=== PATIENT | male | born 1975 | race Caucasian/White ===

== ENCOUNTER 2024-01-10 06:06 | Emergency (ER) | payer MEDICAID, SELFPAY ==
[2024-01-10 06:08] VITALS: BP 133/96; PULSE 79; RESP 18; TEMP 36.1; O2SAT 99
--- NOTE | 2024-01-10 06:15 | CT_ITS ---
EXAM: CT ABDOMEN AND PELVIS WITHOUT INTRAVENOUS CONTRAST CLINICAL INDICATION: Pain TECHNIQUE: Helically acquired images were obtained of the abdomen and pelvis without intravenous contrast. This CT exam was performed using one or more of the following dose reduction techniques: automated exposure control, adjustment of the mA and/or kV according to patient size, and/or use of iterative reconstruction technique. RADIATION DOSE: CTDIvol = 6.05 mGy, DLP = 285.59 mGy-cm COMPARISON: No relevant prior studies available. FINDINGS: LOWER THORAX THERE are at least 4 small irregular nodular opacities in the right lung base, the largest roughly 6 mm, not typical infiltrates or effusions. The heart is not fully included. No cardiomegaly. No significant pericardial effusion. ABDOMEN: LIVER: Unremarkable. Homogeneous. GALLBLADDER AND BILE DUCTS: Unremarkable. No calcified gallstones. No gallbladder distention or wall edema. No intra- or extrahepatic biliary ductal dilation. PANCREAS: Unremarkable. No focal cystic mass. SPLEEN: Unremarkable. Normal size without focal cystic or solid mass. ADRENALS: Unremarkable. No nodules. KIDNEYS AND URETERS: There is slightly complex cystic lesion at the anterior lower pole of the right kidney, 3.3 cm craniocaudal, with faint peripheral calcification at its deep margin, slight wall thickening of roughly 4 mm at its right deep margin. Suspicion of tiny nonobstructing stone dependent right kidney. At least one small nonobstructing stone left kidney. Slightly prominent right ureter to the level of a 3.3 mm x 2.3 mm stone in the distal right ureter immediately adjacent to the right UVJ. Mid right ureter is roughly 8 mm, right renal pelvis 1.4 cm AP diameter. STOMACH AND BOWEL: Moderate stool in much of the proximal half of the colon. No stomach or bowel distention. No focal inflammatory change. PELVIS: APPENDIX: Normal appendix in the right pelvic sidewall. The cecum is low-lying. BLADDER: Unremarkable. REPRODUCTIVE: Unremarkable as visualized. No mass. ABDOMEN and PELVIS: INTRAPERITONEAL SPACE: Unremarkable. No ascites or other fluid collection. No free air. BONES/JOINTS: Grade 1-2 anterolisthesis of L5 with respect to S1 with marked L5-S1 disc space narrowing and bilateral L5 pars defects. Roughly 1.1 cm anterolisthesis of L5 with to S1. Marked disc space narrowing and moderate spondylosis with vacuum disc at L5 4-5, endplate sclerosis at both levels. No evidence of significant spinal canal stenosis. Degenerative changes of both hip joints, mildly greater on the right with slight gas in the joint mild narrowing of the superior and medial joint compartments. No suspicious lytic or blastic abnormality. SOFT TISSUES: Unremarkable. No discrete abdominal or pelvic wall hernia. VASCULATURE: Minimal aortoiliac atherosclerotic calcification. Abdominal aorta is non-dilated. LYMPH NODES: Unremarkable. No enlarged lymph nodes. CT/Abdomen/Pelvis without Cont IMPRESSION: 1. Bilateral nephrolithiasis. Mild right hydroureteronephrosis to the level of a 3 mm x 2 mm stone in the distal right ureter. 2. At least mildly complex exophytic right renal cystic lesion with slightly thick wall and slight curvilinear wall calcification. Prior exam would be useful for comparison. Cannot exclude neoplasm. RECOMMENDATIONS: ACR White Paper guidelines (Hermervin, et al. JACR 2018; 15(2):264-273) recommend MRI or CT without and with intravenous contrast. 3. Cluster of small nodules in the right lung base, likely additional and benign. The largest is 6 mm. [address] full chest [address] for additional evaluation if it is thought to be indicated. 4. Bilateral L5 pars defects. Advanced degenerative change at L5-1 L4-5. Mild advanced degenerative hip changes. Electronically Signed: Marcela Thompson MD at 8:28 EDT ,
--- NOTE | 2024-01-10 06:16 | ED.VIS.GI ---
HPI HPI - GI History of Present Illness Chief Complaint: Abd Pain Detail of Chief Complaint: Right-sided flank pain Informant: patient Abdominal Pain/Flank Pain Onset: Today and Hours Context: Gradual Onset Timing: Continuous Quality: Sharp Location: Right Flank Current Severity: Moderate Maximum Severity: Moderate Worsened by: Nothing Relieved by: Nothing Nausea/Vomiting/Emesis GI Symptom: Positive for Nausea Onset: Today Severity: Mild Diarrhea/Melena/Hematochezia GI Symptom: Negative for Diarrhea, Melena or Hematochezia Associated Symptoms Associated Symptoms: Negative for Dysuria, Frequency, Hematuria or Urgency Narrative Narrative: 48-year-old male history of prior bilateral pneumothoraces. Complaining of right flank pain that began around 4 AM this morning. Associated nausea. No vomiting. No diarrhea. No fever. No dysuria or hematuria. No prior history of kidney stones. No prior abdominal surgeries. Patient states the pains been constant getting worse. Prior similar symptoms: No Recent Illness/Hospitalization: No PFSH PFSH Medical History (Updated 01/10/24 @ 06:[address] Femi Torrez MD) Hyperthyroidism Smoker Pneumothorax Allergy/AdvReac Type Severity Reaction Status Date / Time No Known Allergies Allergy Verified 01/10/24 06:22 Social History Smoking Status: Current every day smoker tobacco type: cigarettes ROS ROS ED ROS Narrative Right-sided abdominal flank pain. Nausea. Review of Systems ROS Unobtainable: Denies due to encephalopathy Constitutional Constitutional ED: Denies chills or fever(s) ENT ENT ED: Denies ear pain Respiratory/Chest Respiratory/Chest: Denies cough Gastrointestinal Gastrointestinal: Reports abdominal pain and nausea; Denies constipation, diarrhea, melena or vomiting Genitourinary Genitourinary ED: Denies dysuria or hematuria Musculoskeletal Musculoskeletal: Denies arthralgias Integumentary Denies abscess Neurologic Neurologic: Denies headache(s) Psychiatric Psychiatric: Denies anxiety or depression Endocrine Endocrinology: Denies polydipsia or polyphagia Hematologic/Lymphatic Hematologic/Lymphatic: Denies easy bleeding or easy bruising Allergic/Immunologic Allergic/Immunologic ED: Denies mouth swelling EXAM Physical Exam Narrative Exam Narrative: 48-year-old male lying in bed. Complaining of flank pain. Vital signs stable afebrile. H EENT exam unremarkable. Neck nontender. Lungs clear to auscultation bilaterally. Heart regular rhythm rate about 80. No murmur. Chest wall and ribs nontender. Abdomen is soft, nontender, nondistended, normal bowel sounds without peritoneal signs. He has no reproducible abdominal pain. No hernia or mass. No pulsatile mass. No right upper or right lower quadrant reproducible tenderness. Back nontender. No CVA tenderness. There is no rashes or signs of trauma to his abdomen. Moving all 4 extremities. Nontender no edema. Normal strength. Patient is awake alert. Answering questions and following commands. Const Vital Signs: 01/10/24 06:08 Temperature 96.9 F L Temperature Source Temporal Pulse Rate 79 Respiratory Rate 18 Blood Pressure 133/96 H Blood Pressure Mean 108 Pulse Ox 99 Oxygen Delivery Method Room Air Positive well nourished and well developed; Negative for obese, cachectic, contractures or unkempt General Appearance ED: well developed and NAD; Negative for unkempt, cachectic, contractures or pallor Nutritional Appearance: Negative for cachectic or obese HEENT Reports moist mucous membranes; Denies dry mucous membranes normocephalic and atraumatic; Negative for trauma or tenderness Mouth ED: No dry mucous membranes Mouth: No dry mucous membranes Eyes PERRL and EOMs intact bilaterally General Eye ED: Negative for pale conjunctiva or scleral icterus Neck no lymphadenopathy, supple and no JVD General: Negative for tenderness Carotids: Negative for other Resp normal respiratory effort and clear to auscultation bilaterally Effort and Inspection: Negative for respiratory distress Auscultation: Negative for rales, rhonchi or wheezes Cardio regular rate, regular rhythm, S1 normal heart sound, S2 normal heart sound and no murmurs Rate: Negative for bradycardia or tachycardic Rhythm: Negative for abnormal rhythm GI non-tender, non-distended and no masses Inspection: Negative for abdominal distention Auscultation: normoactive bowel sounds Palpation: soft; Negative for tender, guarding, rigid, mass, pulsatile mass or rebound tenderness present Back/Spine no CVA tenderness General Back: Negative for CVA tenderness Cervical Spine: Negative for cervical spine tenderness Thoracic Spine / Upper Back: Negative for thoracic spinal tenderness Lumbar Spine / Lower Back: Negative for lumbar spinal tenderness Coccyx: Negative for other Extremity full ROM General Extremety ED: Negative for edema, tenderness or other findings General Extremity: Negative for edema or other findings Neuro CN's II-XII intact bilaterally and moves all extremities Sensorium / Orientation: alert, oriented to person, oriented to place and oriented to time; Negative for orientation impaired, confused, lethargic or stuporous Motor Exam: strength 5/5 throughout Psych mental status grossly normal and thought process normal Appearance: Negative for unkempt Attitude: No agitated Mood & Affect: Negative for depressed, anxious or tearful Skin no wounds General Skin Exam: Negative for jaundice or pallor Lesions: no lesions Rashes: no rashes Trauma: Negative for abrasion MDM MDM MDM Narrative Medical decision making narrative: 48-year-old male with nonreproducible right flank pain that began around 4 AM this morning. No prior abdominal surgeries. May be a kidney stone versus other etiologies. Clinically does not appear to be gallbladder disease nor a bowel obstruction nor appendicitis. CAT scan labs are pending. He will be treated with IV Toradol and morphine for pain and IV Zofran for nausea. Repeat exam 6:48 AM patient's pain is much improved after the IV pain medication. As is his nausea. Exam unchanged. There is no reproduced abdominal pain. Awaiting CAT scan and UA results. Currently running diagnosis is possible acute kidney stone. UA is pending. He has not given us a sample yet. CAT scans been done. I reviewed it. Awaiting final radiologist interpretation. Patient be turned over to the oncoming a.m. physician for the review of the CAT scan report and the urine and make final disposition. Most likely patient should be able to be discharged home. Lab Data Attestation: I reviewed the patient's lab results. Lab results narrative: CBC shows a white count of 15.2. H&H of 14 and 44. Platelets 349. CMP shows a gap of 7. BUN/creatinine 26 and 1.2. Glucose 151. Liver enzymes are unremarkable. They are not elevated. Labs: Laboratory Results - last 24 hr 01/10/24 06:20 WBC 15.2 H RBC 4.99 Hgb 14.4 Hct 44.9 MCV 90.0 MCH 28.9 MCHC 32.1 RDW Std Deviation 43.6 RDW Coeff of Nadine 13.3 Plt Count 349 MPV 8.7 Immature Gran % (Auto) 0.500 Neut % (Auto) 66.1 Lymph % (Auto) 22.5 Ness % (Auto) 8.0 Eos % (Auto) 2.4 Baso % (Auto) 0.5 Absolute Neuts (auto) 10.1 H Absolute Lymphs (auto) 3.43 Nucleated RBC % 0 Sodium 137 Potassium 4.6 Chloride 107 Carbon Dioxide 23.0 Anion Gap 7 BUN 26 H Creatinine 1.21 Est GFR (MDRD) Af Amer 82 Est GFR (MDRD) Non-Af 68 BUN/Creatinine Ratio 21.5 H Glucose 151 H Calcium 8.8 Total Bilirubin 0.20 AST 17 ALT 20 Alkaline Phosphatase 102 Total Protein 7.3 Albumin 3.7 Globulin 3.6 Albumin/Globulin Ratio 1.0 Discharge Plan Triage Chief Complaint: Abd Pain ED Provider: Femi Torrez Dx/Rx/DC Orders Clinical Impression: Right flank pain Print Language: [place] Disposition Disposition: Home, Self Care
[2024-01-10] MEDS: Ondansetron 4 MG/2 ML Vial IV (06:23)
[2024-01-10] MEDS: Ketorolac 30 MG/ML Syringe IV (06:23)
[2024-01-10] MEDS: morphine 8 MG/ML Syringe IV (06:24)
[2024-01-10 06:29] LABS: Absolute Lymphocyte Count 3.43 X10^3/uL (0.83-4.51); Absolute Neutrophil Count 10.1 X10^3/uL (2.0-7.7); Basophil# 0.08 X10^3/uL; Basophil% 0.5 % (0-1); Eosinophil# 0.36 X10^3/uL; Eosinophils% 2.4 % (0-5); Hematocrit 44.9 % (40-54); Hemoglobin 14.4 g/dL (13.0-16.5); Lymphocyte # 3.43 X10^3/ul (0.83-4.51); Lymphocyte % 22.5 % (19-41); Mean Corp Hgb Conc 32.1 g/dL (32-36); Mean Corpuscular Hgb 28.9 pg (27.0-32.0); Mean Platelet Vol. 8.7 fl (6.2-12.0); Monocyte# 1.21 X10^3/uL; NRBC Flagged by Analyzer 0 % (0-5); Neutrophil # 10.07 X10^3/uL (2.7-7.7); Neutrophil % 66.1 % (47-70); Platelet Count 349 K/mm3 (150-450); RBC Distribution Width CV 13.3 % (11.6-14.6); RBC Distribution Width SD 43.6 fl (35.1-43.9); Red Blood Count 4.99 M/mm3 (4.6-6.2); White Blood Count 15.2 K/mm3 (4.4-11.0)
[2024-01-10 06:51] LABS: AST(SGOT) 17 U/L (15-37); Alanine Aminotransfer ALT/SGPT 20 U/L (16-61); Albumin, Serum 3.7 g/dL (3.2-5.0); Alkaline Phosphatase 102 U/L (45-117); Anion Gap 7 (5-15); BUN 26 mg/dL (7-18); BUN/Creat Ratio 21.5 RATIO (10-20); Calcium,Total 8.8 mg/dL (8.5-10.1); Chloride 107 mmol/L (98-107); Creatinine, Serum 1.21 mg/dL (0.70-1.30); EST Glomerular Filtration Rate 68 mL/min (>60); Est Glom Filt Rate - Afr Amer 82 mL/min (>60); Globulin 3.6 g/dL (2.2-4.2); Glucose 151 mg/dL (74-106); Potassium 4.6 mmol/L (3.5-5.1); Protein, Total 7.3 g/dL (6.4-8.2); Sodium Level 137 mmol/L (136-145)
[2024-01-10 07:18] VITALS: BMI 19.5
[2024-01-10 07:56] LABS: Bacteria 0 SEEN /hpf (None Seen); Mucous, Urine 0 SEEN /hpf (<or=2+)
[2024-01-10 08:09] LABS: Color, Urine Yellow (Yellow); Glucose, Dipstick Normal (Normal); Ketone-Dipstick 5 mg/dl (Negative); Leukocyte Esterase-Dipstick 25 /ul (Negative); Nitrite-Dipstick Positive (Negative); Occult Blood-Urine 250 /ul (Negative); Protein-Dipstick 30 mg/dl (Negative); Specific Gravity, Urine 1.025 (1.002-1.030); Urine Bilirubin Dipstick Negative (Negative); Urine Clarity Sl. Cloudy (Clear); Urine Urobilinogen 1 mg/dl (Normal)
[2024-01-10 08:19] LABS: Calcium Oxalate Crystals Ur RARE /hpf (<or=2+); Red Blood Cells-Urine > 100 SEEN /hpf (0-5); Squamous Epithelial Cells - UA 0-5 SEEN /hpf (0-5); White Blood Cells 0-5 SEEN /hpf (0-5)
[2024-01-10 08:26] VITALS: BP 128/70
[2024-01-10 08:45] VITALS: BP 161/94; PULSE 51; RESP 16; TEMP 36; O2SAT 96
== END 2024-01-10 08:46 | disposition home or self-care (01) ==
PROVIDERS: Emergency Provider Emergency Medicine; Visit Provider Emergency Medicine
DX: N13.2 Hydronephrosis with renal and ureteral calculous obstruction (principal); F17.210 Nicotine dependence, cigarettes, uncomplicated; R11.0 Nausea
CPT/HCPCS: 74176; 80053; 81001; 85025; 87086; 96374; 96375; 99283; J7030; A4216; J2405

== ENCOUNTER 2024-01-28 23:18 | Emergency (ER) | payer MEDICAID, SELFPAY ==
[2024-01-28 23:19] VITALS: BP 143/86; PULSE 86; RESP 16; TEMP 36.2; O2SAT 99; BMI 19.1
--- NOTE | 2024-01-28 23:36 | EDS_ITS ---
HPI History of Present Illness Chief Complaint: Wound Check Informant: patient and spouse/S.O. Narrative Narrative: Patient is a 48-year-old male with past medical history of hypothyroidism. He states that his cat got out earlier today and he was able to catch it. He states however as he did so it bit him in his left hand. He states that he is right-hand dominant. He reports injury occurred roughly 1 hour prior to arrival. He denies any history of immunosuppression and he denies any fevers or chills numbness tingling or weakness. However he does have concerned that he may develop an infection secondary to the cat bite and therefore comes in for e valuation [facility] Medical History (Updated 01/28/24 @ 23:[address] Richie Hendricks, DO) Hyperthyroidism Smoker Pneumothorax Home Medications ?Medication ?Instructions ?Recorded ?Last Taken ?Type amoxicillin 875 mg-potassium 1 tab PO BID 10 days #20 tabs 01/28/24 Unknown Rx clavulanate 125 mg tablet Allergy/AdvReac Type Severity Reaction Status Date / Time No Known Allergies Allergy Verified 01/28/24 23:18 Social History Smoking Status: Current every day smoker tobacco type: cigarettes ROS ROS ED Constitutional Constitutional ED: Denies chills or fever(s) ENT ENT ED: Denies sore throat Cardiovascular Cardiovascular: Denies chest pain Respiratory/Chest Respiratory/Chest: Denies cough or dyspnea Gastrointestinal Gastrointestinal: Denies abdominal pain, diarrhea, nausea or vomiting Genitourinary Genitourinary ED: Denies dysuria Musculoskeletal Musculoskeletal: Reports other Details: Positive left hand pain ; Denies myalgias Integumentary Reports other Details: Positive cat bite left hand ; Denies rash Neurologic Neurologic: Denies headache(s), paresthesias or weakness Hematologic/Lymphatic Hematologic/Lymphatic: Denies easy bleeding or easy bruising EXAM Physical Exam Const Vital Signs: 01/28/24 23:19 Temperature 97.2 F L Temperature Source Temporal Pulse Rate 86 Respiratory Rate 16 Blood Pressure 143/86 H Blood Pressure Mean 105 Pulse Ox 99 Positive well nourished and well developed General Appearance ED: well developed; Negative for pallor HEENT HEENT Narrative: Normocephalic atraumatic Eyes PERRL and EOMs intact bilaterally Neck supple Resp normal respiratory effort and clear to auscultation bilaterally Cardio regular rate and regular rhythm Extremity Extremity Narrative: Left upper extremity is neurovascularly intact; AIN/PIN are intact and normal. Patient has full active and passive range of motion. Along the palmar aspect of the left hand patient has 2 less than 0.5 cm breaks in the skin without active bleeding or retained foreign body consistent with cat bite. No surrounding erythema or warmth or lymphangitic streaking. Remainder of the exam is normal Neuro oriented x3, CN's II-XII intact bilaterally and no sensory deficits noted Sensorium / Orientation: alert Motor Exam: strength 5/5 throughout Psych mental status grossly normal Skin No no wounds Skin Narrative: 2 small puncture wounds to the palmar aspect of the left hand as documented above consistent with cat bite General Skin Exam: Negative for jaundice or pallor MDM MDM MDM Narrative Medical decision making narrative: Patient arrived to the ER mildly hypertensive but otherwise with stable vitals. The Bite occurred roughly 1 hour prior to arrival he does not have history of immunosuppression and there is no physical exam findings to suggest retained foreign body or bony injury. At this time there is no obvious signs of infection which would correlate with the short duration from time of injury. However as cat bites to carry a higher rate of infection he will be placed on Augmentin for prophylactic infection control. As his tetanus status is approximate 20 years old it was updated in the ER as well. The patient did have his wounds/hand soaked in a combination of hydrogen peroxide and chlorhexidine for cleaning. At this time I have resolved low concern for retained foreign body or bony injury and he has no signs of ligamentous or tendon injury there is no need for further workup and he is otherwise safe for discharge. History & Record Review Discussion w/independent historian: Patient and Significant other Discharge Plan Triage Chief Complaint: Wound Check ED Provider: Richie Hendricks Dx/Rx/DC Orders Clinical Impression: Cat bite of left hand, Hyperthyroidism, Tobacco abuse Instructions: ED Cat Bite Prescriptions: New amoxicillin-pot clavulanate 875-125 mg tablet 1 tab PO BID 10 Days Qty: 20 0RF Primary Care Provider: Care Physician,No Primary Referrals: Vipul Keller MD [Med Staff - Active Staff] - Care Physician,No Primary [Primary Care Provider] - Activity Restrictions/Additional Instructions: Please continue to wash your hands with soap and water to help keep the area clean and prevent infection. Use the Augmentin as directed for infection prophylaxis as well. However if you develop increased redness swelling purulent discharge or have any further concerns please return for repeat evaluation Print Language: [place] Disposition Disposition: Home, Self Care
[2024-01-28] MEDS: Amox/Clavulanate 875 MG Tablet PO (23:42)
[2024-01-28] MEDS: Diphth,Pertuss(Acell),Tet Vac 0.5 ML Vial IM (23:43)
[2024-01-28 23:45] VITALS: BP 143/86; PULSE 81; RESP 16; TEMP 36.3; O2SAT 100
== END 2024-01-29 00:06 | disposition home or self-care (01) ==
LOC: ED 23:41
PROVIDERS: Emergency Provider Emergency Medicine; Visit Provider Emergency Medicine
DX: S61.452A Open bite of left hand, initial encounter (principal); E05.90 Thyrotoxicosis, unspecified without thyrotoxic crisis or storm; F17.210 Nicotine dependence, cigarettes, uncomplicated; Z48.00 Encounter for change or removal of nonsurgical wound dressing; W55.01XA Bitten by cat, initial encounter; Z23 Encounter for immunization
CPT/HCPCS: 90471; 90715; 99282